=== PATIENT | male | born 1965 | race Caucasian/White ===

== ENCOUNTER 2021-03-25 09:56 | Emergency (ER) | payer OTHER, SELFPAY ==
[2021-03-25 10:33] VITALS: BP 195/99; PULSE 91; RESP 20; TEMP 36.9; O2SAT 96; BMI 34.4
--- NOTE | 2021-03-25 12:04 | HMH.EDUTC ---
[facility] [place] Clinical Impression: Chest wall abscess Disposition: Home, Self-Care Condition on Discharge: Good Instructions: Boil, DI for Skin Abscess Additional Instructions: Keep the wound clean and dry. Follow up with your regular doctor. Take the antibiotics as directed and apply the topical antibiotics as directed. We took a wound culture of the drainage that came out of the abscess. This test will be complete in 3 days and it will tell the bacteria that is causing the infection and the best antibiotics to treat it with. If you are not better, please follow up to go over these results and adjust your treatment. I'm putting in a referral to a surgeon. If this lesion does not heal or if there are any issues with it, that is the correct physician to follow up with. With this being on your chest close to your breast area, please follow up if it does not resolve within the next 3 days. GO TO THE ER FOR ANY WORSENING SYMPTOMS Prescriptions: Sulfamethoxazole/Trimethoprim [Bactrim DS tablet] 1 each PO BID 10 Days #20 tab Transmission Status: Received by [id number] Mupirocin [Bactroban 2% Ointment 22gm tube] 1 applicatio TP TID 7 Days #1 gm Transmission Status: Received by [id number] cephALEXin [cephALEXin 500mg capsule] 500 mg PO Q6H 10 Days #40 cap Transmission Status: Received by [id number] Referrals: ProviderRogelio MD [Primary Care Provider] - Grant Albert MD [Staff Physician] - Time of Disposition: 12:13 Medical Decision Making - Medical Records Medical records reviewed: No: I reviewed the patient's medical records. - Shakeel Inquiry Pt receiving controlled substance: No Vital Signs: 03/25/21 10:33 03/25/21 12:20 Temperature 98.5 F 98.5 F Temperature Source Oral Pulse Rate 87 Pulse Rate [Left] 91 H Respiratory Rate 20 19 Blood Pressure 182/96 H Blood Pressure [Right Arm] 195/99 H Blood Pressure Mean [Right Arm] 131 02 Sat by Pulse Oximetry 96 Orders (Tests/Meds): ED MEDICATIONS Discontinued Medications Generic Name Dose Route Start Last Admin Trade Name Freq PRN Reason Stop Dose Admin Lidocaine HCl 5 ml 03/25/21 12:12 03/25/21 12:19 Lidocaine 1% 10ml Mdv SQ 03/25/21 12:13 5 ml ONCE ONE Administration ORDERS Category Date Time Status Wound Culture and Gram Stain Stat Micro 03/25/21 12:00 Results [facility] [place] - General Stated complaint: cyst on R chest Time Seen by Provider: 03/25/21 11:00 Mode of Arrival: Ambulatory Source of Information: Patient Limitations: No Limitations Description of Symptoms (Recalled from Triage Doc. by RN): pt c/o an abcess under the R breast. pt states it has not drained at all. HEENT Symptoms (Recalled from RN notes): No Resp Symptoms (Recalled from RN notes): No Skin Symptoms (Recalled from RN notes): Yes MS Symptoms (Recalled from RN notes): No Functional Status (Recalled from RN notes): wnl - History of Present Illness Provider Complaint: He has what he describes as an infected cyst on the right side of his chest. He denies any history of having any lesion in that spot before 3 to 4 days ago. He states he now has a swollen red area that he thought was an infected hair, but it has got worse and worse. He denies any fever or chills. He is not a diabetic. - Related Data Previous Rx's Medication Instructions Recorded Mupirocin [Bactroban 2% Ointment 1 applicatio TP TID 7 Days #1 gm 03/25/21 22gm tube] Sulfamethoxazole/Trimethoprim 1 each PO BID 10 Days #20 tab 03/25/21 [Bactrim DS tablet] cephALEXin [cephALEXin 500mg 500 mg PO Q6H 10 Days #40 cap 03/25/21 capsule] Allergies Allergy/AdvReac Type Severity Reaction Status Date / Time Tetracyclines Allergy Verified 03/25/21 12:11 - Worker's Comp Is this a Worker's Comp case?: No [facility] History - Hepatitis A Screen Drug use history?: No High risk sexual behaviors?: No History of sex
[2021-03-25 12:20] VITALS: BP 182/96; PULSE 87; RESP 19; TEMP 36.9
== END 2021-03-25 12:21 | disposition home or self-care (01) ==
PROVIDERS: Emergency Provider Nurse Practitioner Family
DX: L02.213 Cutaneous abscess of chest wall (principal)
CPT/HCPCS: 10060; 87070; 87077; 87186; 87205; 96372; 99202; G0463

== ENCOUNTER → 2022-07-16 13:59 | Outpatient (CLI) | payer BC, SELFPAY ==
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
== END ==
PROVIDERS: PCP Nurse Practitioner Family; Visit Provider Nurse Practitioner Family
DX: Z87.891 Personal history of nicotine dependence (principal); Z12.2 Encounter for screening for malignant neoplasm of respiratory organs
CPT/HCPCS: 71271

== ENCOUNTER → 2022-09-11 08:23 | Outpatient (CLI) | payer BC, SELFPAY ==
--- NOTE | 2022-09-11 08:23 | US_ITS ---
FINAL REPORT TECHNIQUE: Ultrasound images of the kidneys and bladder were obtained. CLINICAL HISTORY: hypertension FINDINGS: The right kidney measures 12.7 cm in length. It is normal in echogenicity. There is no hydronephrosis. The left kidney measures 12.4 cm in length. It is normal in echogenicity. There is no hydronephrosis. There is a 7 mm cyst in the left kidney. There is also small stone in the mid left kidney. The spleen is unremarkable. IMPRESSION: Small left renal stone. Left renal cyst. Reviewed, Interpreted and Dictated by Grant Gross III, MD Transcribed by Noemy Ga Authenticated and [facility]
== END ==
LOC: RAD 08:23
PROVIDERS: PCP Nurse Practitioner Family; Visit Provider Nurse Practitioner Family
DX: I10 Essential (primary) hypertension (principal)
CPT/HCPCS: 76770

== ENCOUNTER → 2022-09-15 07:39 | Outpatient (CLI) | payer BC, SELFPAY ==
--- NOTE | 2022-09-15 07:48 | CA_ITS ---
FINAL REPORT CLINICAL HISTORY: bilateral, uncontrolled HTN FINDINGS: Aorta velocity: 50 cm/sec Right kidney: 12.9 cm. No evidence of hydronephrosis or mass. Right intrarenal RI: 0.56 Right renal artery velocity: 100 cm/sec. Right RAR (Renal artery-Aortic Ratio): 2.01 Left Kidney: 11.9 cm. No evidence of hydronephrosis or mass. Left intrarenal RI: 0.56 Left renal artery velocity: 86 cm/sec. Left RAR (Renal Artery-Aortic Ratio): 1.72 IMPRESSION: No evidence of significant renal artery stenosis. CT angiogram or postcontrast MR angiogram would be more sensitive for evaluation of possible renal artery stenosis. Reviewed, Interpreted and Dictated by Grant Gross III, MD Transcribed by Jamarcus Hutchinson Authenticated and [facility]
== END ==
PROVIDERS: PCP Nurse Practitioner Family; Visit Provider Nurse Practitioner Family
DX: I10 Essential (primary) hypertension (principal)
CPT/HCPCS: 93976

== ENCOUNTER → 2022-10-02 13:00 | Outpatient (CLI) | payer BC, SELFPAY | LOC: RT 13:00 | PROVIDERS: PCP Nurse Practitioner Family; Visit Provider Nurse Practitioner Family | DX: I10 Essential (primary) hypertension (principal) | CPT/HCPCS: 93306 ==

== ENCOUNTER → 2023-01-05 08:06 | Outpatient (CLI) | payer BC, SELFPAY ==
--- NOTE | 2023-01-05 08:10 | XR_ITS ---
FINAL REPORT CLINICAL HISTORY: dyspnea..question pneumonia FINDINGS: Two views of the chest were obtained. The heart size and pulmonary vascularity are within normal limits. The mediastinum is normal. No acute pulmonary abnormality is identified. There is no pneumothorax. The bony thorax is intact. IMPRESSION: No active cardiopulmonary disease. Reviewed, Interpreted and Dictated by Grant Gross III, MD Transcribed by Noemy Ga Authenticated and [facility]
== END ==
LOC: RAD 08:07
PROVIDERS: PCP Nurse Practitioner Family; Visit Provider Nurse Practitioner Family
DX: R05.9 Cough, unspecified (principal); R06.00 Dyspnea, unspecified; T59.811A Toxic effect of smoke, accidental (unintentional), initial encounter
CPT/HCPCS: 71046

== ENCOUNTER 2023-02-27 09:10 | Emergency (ER) | payer BC, SELFPAY ==
[2023-02-27 09:15] VITALS: BP 147/73; PULSE 79; RESP 18; TEMP 36.8; O2SAT 97; BMI 22.9
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
--- NOTE | 2023-02-27 09:31 | XR_ITS ---
PROCEDURE INFORMATION: Exam: XR Chest Exam date and time: 02/27/2023 9:28 AM Age: 57 years old Clinical indication: Cough and shortness of breath; Smoker's cough; Additional info: Cough. S. O. A. , Chest pain, cough TECHNIQUE: Imaging protocol: Radiologic exam of the chest. Views: 2 views. COMPARISON: CR XR CHEST 2V 01/05/2023 8:11 AM FINDINGS: Lungs: The lungs are hyperinflated with flattening of the hemidiaphragms compatible with COPD. Pleural spaces: Unremarkable. No pleural effusion. No pneumothorax. Heart/Mediastinum: Unremarkable. No cardiomegaly. Bones/joints: Unremarkable. IMPRESSION: COPD.
[2023-02-27 10:22] VITALS: BP 147/73; PULSE 79; RESP 18; TEMP 36.8; O2SAT 97
== END 2023-02-27 10:22 | disposition home or self-care (01) ==
PROVIDERS: Emergency Provider Nurse Practitioner Family; PCP Nurse Practitioner Family
DX: J44.1 Chronic obstructive pulmonary disease with (acute) exacerbation (principal); R05.9 Cough, unspecified; F17.210 Nicotine dependence, cigarettes, uncomplicated; I10 Essential (primary) hypertension
CPT/HCPCS: 71046; 99212; 99214; G0463

== ENCOUNTER 2023-05-26 09:16 | Outpatient (CLI) | payer BC, SELFPAY | END 2023-05-26 23:59 | PROVIDERS: PCP Nurse Practitioner Family; Visit Provider Internal Medicine Pulmonary Disease | DX: R06.09 Other forms of dyspnea (principal) | CPT/HCPCS: 94060; 94618; 94726; 94729 ==

== ENCOUNTER 2023-06-02 08:41 | Outpatient (CLI) | payer BC, SELFPAY ==
[2023-06-02 08:56] LABS: Basophils # 0.1 K/mm3 (0-0.2); Basophils % 1.2 % (0.1-2.0); Eosinophils # 0.1 K/mm3 (0.0-0.4); Eosinophils % 1.7 % (0.1-12.0); Hemoglobin 14.6 g/dL (14.1-18.0); Lymphocytes # 2.1 K/mm3 (0.7-4.5); Lymphocytes % 25.6 % (10-50); Mean Corpuscular HGB Conc 34.1 g/dL (31.8-35.4); Mean Corpuscular Hemoglobin 31.1 pg (27.0-31.2); Mean Corpuscular Volume 91.2 fl (80-94); Mean Platelet Volume 7.1 fl (7.4-10.4); Monocytes # 0.6 K/mm3 (0.1-1.0); Monocytes % 6.8 % (1.7-9.3); Neutrophils # 5.2 K/mm3 (1.8-7.8); Neutrophils % 64.6 % (37.0-80.0); Platelet Count 283 K/mm3 (142-424); Red Blood Count 4.71 M/mm3 (4.60-6.20); Red Cell Distribution Width 13.3 % (11.5-17.5)
[2023-06-02 09:26] LABS: Alanine Aminotransferase 19 U/L (12-78); Albumin Level 4.7 g/dl (3.5-5.0); Alkaline Phosphatase 49 U/L (38-126); Aspartate Amino Transferase 25 U/L (17-59); Bilirubin,Indirect 0.4 mg/dL (0.0-0.9); Bilirubin,Total 0.4 mg/dl (0.2-1.3); Bilirubin,Unconjugated 0.4 mg/dL (0.0-1.1); Blood Urea Nitrogen 11 mg/dl (9-20); Calcium 9.6 mg/dl (8.4-10.2); Carbon Dioxide 33 mmol/L (22.0-30.0); Chloride 96 mmol/L (98-107); Chol/HDL Ratio 3.2 (1-3.5); Cholesterol 160 mg/dl (140-200); Estimated Glomerular Filt Rate 88 ml/min (>60); GFR (African American) 106 ML/MIN (>60); Glucose 95 mg/dl (74-100); HDL Cholesterol 50 mg/dl (40-60); Magnesium 1.9 mg/dl (1.6-2.3); Sodium 134 mmol/L (136-145); Total Protein,Serum 7.1 g/dl (6.3-8.2); Triglycerides 55 mg/dl (30-150); VLDL Cholesterol 11 mg/dL (0-40)
[2023-06-02 09:37] LABS: Direct LDL Cholesterol 87.02 mg/dL (100-129)
== END 2023-06-02 23:59 ==
PROVIDERS: PCP Nurse Practitioner Family; Visit Provider Nurse Practitioner
DX: E78.5 Hyperlipidemia, unspecified (principal); I10 Essential (primary) hypertension; R07.9 Chest pain, unspecified; F17.210 Nicotine dependence, cigarettes, uncomplicated
CPT/HCPCS: 36415; 80048; 80061; 80076; 83735; 84439; 85025

== ENCOUNTER 2023-06-09 07:06 | Outpatient (CLI) | payer BC, SELFPAY ==
--- NOTE | 2023-06-09 | CA_ITS ---
APPROVED REPORT Exam: Pharmacologic Technologist: Angella Lamb Ht: 5 ft 10 in Wt: 182 lbs BSA: 2.01 m2 HR: 61 bpm BP: 158/94 mmHg Indications: R07.9, I20.89 Medical History Medications: Amlodipine,,,,, HCTZ,,,,, Albuterol,,,,, Valsartan,,,,, BisOPROLOL,,,,, BenzONATATE,,,,, StIOLto,,,,, Stress Test Details Test: LEXISCAN HR Resting HR: 58 bpm Max Heart Rate (APMHR): 165 bpm Max HR Achieved: 80 bpm Target HR (85% APMHR): 140 bpm % of APMHR: 48 Recovery HR: 64 bpm BP Resting BP: 158.0/94.0 mmHg Max BP: 161.0/93.0 mmHg Recovery BP: 160.0/95.0 mmHg ECG Resting ECG: Sinus bradycardia Stress ECG: No significant ST changes Arrhythmia: None Clinical Exercise duration: 04:00 min Highest Stage Achieved: Stress ECG Conclusion Symptoms: Shortness of air, mild head discomfort. No chest pain. Arrhythmias/Ectopy: None ST-T Changes: No significant ST changes. Conclusion: Unremarkable Lexiscan stress. Myoview images reported separately. Test Summary REST . . . . . . . Resting REST 05:25 . . 58 . 158/ 94 . . Stage 1 . . . . . . . Myoview Injected Stage 1 01:00 . . 68 . . . . Stage 2 01:00 . . 79 . . . . Stage 3 01:00 . . 70 . 144/ 92 . . Stage 4 01:00 . . 68 . 161/ 93 . Stop exercise at 04:00 RECOVERY 01:00 . . 70 . . . . RECOVERY 02:00 . . 64 . 151/ 98 . . RECOVERY 03:00 . . 64 . 160/ 95 . . RECOVERY 03:17 . . 68 . 160/ 95 . . Electronically signed by : Madie Tineo MD 06/10/2023 11:09:17
--- NOTE | 2023-06-09 07:07 | NM_ITS ---
APPROVED REPORT Exam: Nuclear Stress Test Indication: Chest pain, HTN, Tobacco use, Family history Patient Location: Outpatient Stress Tech: Angellaelis Lamb NM Tech:Melania Ricks, ARRT, RT (R)(N) Ht: 5 ft 10 in Wt: 170 lbs HR: 58 bpm BP: 158/94 mmHg BSA: 1.95 m2 TID: 1.03 BMI: 24.3 History: Chest pain, HTN, Tobacco use, Family history Procedure: Patient received 0.4 mg of intravenous Lexiscan, resting heart rate 58 bpm, resting blood pressure 158/94 mmHg, with Lexiscan maximum heart rate achieved was 80 bpm which is % of the maximum predicted heart rate and blood pressure was 161/93 mmHg. With Lexiscan, patient denied any complaint of chest pain. Cardiac Stress and Resting SPECT Images: Cardiac Stress and Resting SPECT images were obtained using technetium 99m Myoview 32.7 mCi stress and 10.47 mCi at rest. Resting and stress imaging in supine and prone positions demonstrate no evidence of fixed or reversible perfusion defects. Gated imaging demonstrates normal global and regional LV systolic function. LVEF is calculated at 54%. Conclusion: No evidence of fixed or reversible perfusion defects. Gated imaging demonstrates normal global and regional LV systolic function. LVEF is calculated at 54%. Electronically signed by : Madie Tineo MD 06/10/2023 11:10:25
[2023-06-09] MEDS: SODIUM CHLORIDE 0.9% 10ML SYR (RAD ONLY) 10 ML IV ×2 (08:41→08:42)
[2023-06-09] MEDS: ISOTOPE MYOVIEW (PER STUDY) 1 DOSE IV (08:41)
[2023-06-09] MEDS: REGADENOSON 0.4MG/5ML SYRINGE 0.400000000000000022 MG IV (08:41)
== END 2023-06-09 23:59 ==
LOC: RAD 07:07
PROVIDERS: PCP Nurse Practitioner Family; Visit Provider Nurse Practitioner
DX: R07.9 Chest pain, unspecified (principal)
CPT/HCPCS: 78452; 93017; 93018; A9502; J2785

== ENCOUNTER 2023-07-19 14:44 | Outpatient (CLI) | payer BC, SELFPAY ==
--- NOTE | 2023-07-19 14:44 | CT_ITS ---
FINAL REPORT TECHNIQUE: Thin section axial images were obtained from the lung apices to the upper abdomen by computed tomography. Reformatted images were obtained and reviewed. This study was performed with techniques to keep radiation doses al low as reasonably achievable (ALARA). Individualized dose reduction techniques using automated exposure control or adjustment of mA and/or kV according to the patient's size were employed. CLINICAL HISTORY: lung cancer screening, current smoker for 40 years, 1ppd, copd COMPARISON: 07/16/2022 FINDINGS: CHEST CT LOW DOSE: 57-year-old male, current smoker, [id number] history of smoking. CTDI vol (mGy): 2.9 DLP (mGy-cm): 1 of 6.55 There is no axillary adenopathy. There is no mediastinal or hilar mass or adenopathy. The heart is normal in size. There is no pericardial or pleural effusion. There are advanced changes of chronic centrilobular emphysema. Lung window images demonstrate the nodules at the periphery of the left lung base, the largest measured 4 mm in size, best seen on image #65 of series 4 with several adjacent smaller nodes, stable. There is also a right lower lobe nodule measuring 4 mm best seen in image #64 of series 4. This is also stable. Limited images of the upper abdomen are unremarkable. IMPRESSION: Lung-RADS category 2. Recommend 12 month follow up low dose chest CT. Reviewed, Interpreted and Dictated by Jay Cobb MD Transcribed by Randi Lopes Authenticated and [facility]
== END 2023-07-19 23:59 ==
LOC: RAD 14:44
PROVIDERS: PCP Nurse Practitioner Family; Visit Provider Internal Medicine Pulmonary Disease
DX: F17.210 Nicotine dependence, cigarettes, uncomplicated (principal)
CPT/HCPCS: 71271

== ENCOUNTER 2024-01-06 08:31 | Outpatient (CLI) | payer BC, SELFPAY ==
--- NOTE | 2024-01-06 08:36 | XR_ITS ---
FINAL REPORT CLINICAL HISTORY: ganglion cyst left 3RD finger COMPARISON: None FINDINGS: LEFT HAND: 3 views of the left hand were obtained. There is no acute fracture or dislocation. Visualized joint spaces are normally aligned. Soft tissues are unremarkable. No soft tissue masses identified. IMPRESSION: No acute bony abnormality. No evidence of soft tissue mass. If indicated, MRI would be a more sensitive exam. Reviewed, Interpreted and Dictated by Grant Gross III, MD Transcribed by Rita Velasco Authenticated and [facility]
== END 2024-01-06 23:59 | disposition home or self-care (01) ==
LOC: RAD 08:32
PROVIDERS: PCP Nurse Practitioner Family; Visit Provider Nurse Practitioner Family
DX: M67.442 Ganglion, left hand (principal)
CPT/HCPCS: 73130

== ENCOUNTER 2024-01-24 13:52 | Outpatient (CLI) | payer BC, SELFPAY ==
--- NOTE | 2024-01-24 | XR_ITS ---
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 No fracture is identified. There is abnormal asymmetric opacity of the right maxillary sinus likely due to chronic sinusitis. This can be further evaluated with CT. No foreign body is identified. IMPRESSION: No acute process. Reviewed, Interpreted and Dictated by Jay Cobb MD Transcribed by Constance Davies Authenticated and [facility]
--- NOTE | 2024-01-24 13:53 | MR_ITS ---
FINAL REPORT CLINICAL HISTORY: hand pain. CYST ON LATERAL ASPECT OF FINGER COMPARISON: None FINDINGS: Multiplanar MR imaging was obtained of the left hand. On coronal images there is no evidence of marrow edema within the metacarpals or visualized phalanges. Minimal hypertrophic changes are noted at the basilar joint. Axial images demonstrate a 6 mm well-circumscribed fluid signal intensity structure along the medial aspect of the third PIP joint. The focus is best seen on image 19 of series 22. The adjacent tendons appear intact. Remaining tendons are intact. IMPRESSION: 6 mm cystic focus along the medial aspect of the third PIP joint probably related to a tiny ganglion cyst. Reviewed, Interpreted and Dictated by Jay Cobb MD Transcribed by Rita Velasco Authenticated and [facility]
== END 2024-01-24 23:59 | disposition home or self-care (01) ==
LOC: RAD 13:53
PROVIDERS: PCP Nurse Practitioner Family; Visit Provider Physician Assistant
DX: R22.32 Localized swelling, mass and lump, left upper limb (principal)
CPT/HCPCS: 70200; 73218

== ENCOUNTER 2024-05-15 10:59 | Outpatient (CLI) | payer BC, SELFPAY ==
--- NOTE | 2024-05-15 11:03 | XR_ITS ---
FINAL REPORT TECHNIQUE: Chest PA & Lateral CLINICAL HISTORY: Shortness of breath COMPARISON: 02/27/2023 FINDINGS: 2 views of the chest were performed. The heart size is normal. The mediastinum is within normal limits. There is no acute cardiopulmonary process. There are no pleural effusions. There is no pneumothorax. The bony thorax appears intact. IMPRESSION: No acute cardiopulmonary process. Reviewed, Interpreted and Dictated by Jay Cobb MD Transcribed by Rita Velasco Authenticated and [facility]
== END 2024-05-15 23:59 | disposition home or self-care (01) ==
LOC: RAD 11:01
PROVIDERS: PCP Nurse Practitioner Family; Visit Provider Nurse Practitioner Family
DX: R06.00 Dyspnea, unspecified (principal)
CPT/HCPCS: 71046

== ENCOUNTER 2024-07-21 10:45 | Outpatient (CLI) | payer BC, SELFPAY ==
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
== END 2024-07-21 23:59 | disposition home or self-care (01) ==
LOC: RAD 10:46
PROVIDERS: PCP Nurse Practitioner Family; Visit Provider Internal Medicine Pulmonary Disease
DX: F17.210 Nicotine dependence, cigarettes, uncomplicated (principal)
CPT/HCPCS: 71271